=== PATIENT | male | born 1970 | race Caucasian/White ===

== ENCOUNTER → 2023-07-30 09:20 | Outpatient (BNVA) | payer SELFPAY | PROVIDERS: Visit Provider Emergency Medicine | DX: M25.532 Pain in left wrist (principal) | CPT/HCPCS: 73110 ==

== ENCOUNTER 2024-12-08 13:37 | Emergency (ER) | payer SELFPAY ==
[2024-12-08 13:46] VITALS: BP 130/79; PULSE 82; RESP 18; TEMP 37.1; O2SAT 95
--- OUTSIDE RECORDS SUMMARY | 2024-12-08 14:08 | XMS_ITS | Encounter Summary ---
Author Organization [facility] Address [address] [place] [address] Care Team Providers Care Windows 7 Deployment Lead Name Role Phone Unavailable Primary Care Provider Unavailabl e Encounter Details Date Type Department Care Team (Latest Contact Info) Description 05/09/2003 Outpatient Historical [facility] [address] 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
--- OUTSIDE RECORDS SUMMARY | 2024-12-08 14:08 | XMS_ITS | Encounter Summary ---
Author Organization [facility] Address [address] [place] [address] Care Team Providers Care Heavy Repairer Name Role Phone Unavailable Primary Care Provider Unavailabl e Encounter Details Date Type Department Care Team (Latest Contact Info) Description 10/05/2004 Outpatient Historical 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
--- OUTSIDE RECORDS SUMMARY | 2024-12-08 14:08 | XMS_ITS | Clinical Summary ---
Author Organization [facility] Address [address] [place]: Epic Prelude ADT [place] [address] Care Team Providers Care Desizing Machine Offbearer Name Role Phone Unavailable Primary Care Provider Unavailabl e Medications ALPRAZolam (XANAX) 1 mg tablet 1 tab one hour before MRI. May repeat after 30-45 min if still anxious.. 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 Gender Identity Not on file Sexual Orientation Not on file Last Filed Vital Signs Vital Sign Reading Time Taken Comments Blood Pressure 118/92 01/07/2018 3:17 PM CDT Pulse 90 01/07/2018 3:17 PM CDT Temperature 36.8 C (98.3 F) 01/07/2018 3:17 PM CDT Respiratory Rate 18 01/07/2018 3:17 PM CDT Oxygen Saturation - - Inhaled Oxygen Concentration - - Weight 131.1 kg (289 lb) 01/07/2018 3:17 PM CDT Height 180.3 cm (5' 11 ) 01/07/2018 3:17 PM CDT Body Mass Index 40.31 01/07/2018 3:17 PM CDT Plan of Treatment Health Maintenance Due Date Last Done Comments DTAP/TDAP/TD VACCINES (1 - Tdap) 1987 HEPATITIS B VACCINES (1 of 3 - 19+ 3-dose series) 11/1987 COLORECTAL SCREENING 2013 Colorectal Cancer Screening 2013 FIT-DNA Q 3 years 2013 FIT/FOBT Q 1 year 2013 Flex Sig/CT Colonography Q 5 years 2013 ZOSTER VACCINE (1 of 2) 2018 INFLUENZA VACCINE (#1) 2024
--- OUTSIDE RECORDS SUMMARY | 2024-12-08 14:09 | XMS_ITS | Encounter Summary ---
Author Organization [facility] Address [address] [place] [address] Care Team Providers Care Extract Puller Name Role Phone Unavailable Primary Care Provider Unavailabl e Encounter Details Date Type Department Care Team (Late st Contact Info) Description 02/11/2007 Outpatient Historical [facility] [address] 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
--- OUTSIDE RECORDS SUMMARY | 2024-12-08 14:09 | XMS_ITS | Clinical Summary ---
Author Organization [facility] Address [address] [address] Care Team Providers Care Ground Intelligence Officer Name Role Phone Unavailable Primary Care Provider Unavailabl e Medications ALPRAZolam (XANAX) 1 mg tablet 1 tab one hour before MRI. May repeat after 30-45 min if still anxious.. 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
--- NOTE | 2024-12-08 15:05 | USR_ITS ---
PROCEDURE INFORMATION: Exam: US Scrotum Exam date and time: 12/08/2024 3:30 PM Age: 54 years old Clinical indication: Other: knot on testicle; Additional info: knot on testicle . Patient describes the lesion doubling in size in 1 day. TECHNIQUE: Imaging protocol: Real-time ultrasound of the scrotum and contents with color Doppler and image documentation. COMPARISON: No relevant prior studies available. FINDINGS: Right testicle: Normal. No mass. Normal color Doppler and arterial waveforms. No torsion. Left testicle: Normal. No mass. Normal color Doppler and arterial waveforms. No torsion. Epididymides: Normal. Scrotum/soft tissues: There is a hyperechoic mass along the right lateral scrotal wall measuring 4 x 2 cm. It has some internal vascularity on color Doppler. Small bilateral hydroceles. US/US scrotum [id number] IMPRESSION: 1. Soft tissue mass with internal vascularity involving the right scrotal wall laterally. Recommend follow-up ultrasound in 6-8 weeks. 2. Unremarkable testes and epididymi.
--- NOTE | 2024-12-08 16:31 | W.ED.MALEGU ---
HPI - Male Genitourinary General: Chief complaint: Skin/Abscess/Foreign Body Stated complaint: knot on R testicle, pain Time Seen by Provider: 12/08/24 16:17 Source: patient Mode of arrival: ambulatory Limitations: no limitations History of Present Illness: Patient 54-year-old male presents to ED today for evaluation of a painless mass to his right scrotal region that he noticed about a week ago. Patient states he has not noticed any redness or warmth to the area. No drainage. He is not having any urinary symptoms. No family history of testicular cancer. MD Complaint: other (scrotal mass) Onset (ago): day(s) Duration: constant Location: right testicle Radiation: right testicle Relieving factors: none Exacerbating factors: none Associated symptoms: Reports no associated symptoms; Deny dysuria, hematuria, nausea or vomiting Related Data Previous Rx's ?Medication ?Instructions ?Recorded methylprednisolone 4 mg tablets in See Rx Instructions PO PER PKG DIR 07/30/23 a dose pack (Medrol (Janusz)) #21 ea cephalexin 500 mg capsule 500 mg PO TID #21 caps 08/03/23 naproxen 500 mg tablet 500 mg PO BID #30 tabs 08/03/23 Allergies Allergy/AdvReac Type Severity Reaction Status Date / Time No Known Allergies Allergy Verified 08/03/23 10:04 Review of Systems Const: Denies: fever(s), chills, body aches, fatigue or malaise Card: Denies: chest pain Resp: Denies: dyspnea GI: Denies: abdominal pain, nausea, vomiting or change in bowel habits : Reports: scrotal swelling; Denies: flank pain, difficulty urinating, dysuria, urinary frequency, urinary urgency, urinary hesitancy, hematuria, genital pain, penile discharge, testicular pain, testicular mass or hematospermia Musc: Denies: back pain Skin/Breast: Denies: rash or erythema Neuro: Denies: headache(s), numbness in extremities, weakness in extremities or sensory changes Physical Exam Const: COMMON NORMALS: no acute distress, no limitations, alert and well nourished GENERAL APPEARANCE: cooperative NUTRITIONAL APPEARANCE: overweight GI: COMMON NORMALS: Normal to inspection, nondistended, normoactive bowel sounds present, Soft to palpation, non-tender, No hepatosplenomegaly present and no masses PALPATION: Yes Soft to palpation and Yes No hepatosplenomegaly present : COMMON NORMALS: Yes no CVA tenderness BLADDER/KIDNEY EXAM: Yes no CVA tenderness PENIS: normal penis MEATUS: meatus normal SCROTUM: Yes testes descended bilaterally and Yes scrotal mass (no erythema/warmth; no fluctuance) Scrotal mass laterality: right Back/Pelvis: COMMON NORMALS: no CVA tenderness Neuro: SENSORIUM/ORIENTATION: Yes alert Course Vital Signs: Vital signs: Vital Signs Temperature 98.8 F 12/08/24 13:46 Pulse Rate 82 12/08/24 13:46 Respiratory Rate 18 12/08/24 13:46 Blood Pressure 130/79 12/08/24 13:46 Pulse Oximetry 95 12/08/24 13:46 Oxygen Delivery Me thod Room Air 12/08/24 13:46 MDM - Male Medical Decision Making Patient has a 4 x 2 cm painless right scrotal mass. This does not appear fluid-filled on the ultrasound or clinically. Patient will require follow-up with urology for potential biopsy. Case management referral has been placed for this. Return to ED precautions discussed. Medical Records I reviewed the patient's medical records. Lab Data Radiology Impressions Scrotum Ultrasound 12/08/24 15:05 IMPRESSION: 1. Soft tissue mass with internal vascularity involving the right scrotal wall laterally. Recommend follow-up ultrasound in 6-8 weeks. 2. Unremarkable testes and epididymi. All radiology interpretation(s) finalized by discharge Discharge Plan Discharge Patient Disposition: Home Clinical Impression: Mass, scrotum Condition: Stable Prescriptions: No Action methylprednisolone [Medrol (Janusz)] 4 mg tablets,dose pack See Rx Instructions PO PER PKG DIR Qty: 21 0RF Rx Instructions: PO PER PKG DIR naproxen 500 mg tablet 500 mg PO BID Qty: 30 0RF cephalexin 500 mg capsule 500 mg PO TID Qty: 21 0RF Discharge Orders: Discharge ED (Routine); Ordered 12/08/24 Ordered By: Azul Sanchez Patient Instructions: Patient Portal & Suzy Instructions Activity Restrictions/Additional Instructions: As we discussed, your ultrasound today showed a scrotal mass. At this point we will have you follow-up with urology in [place] for further evaluation. Case management should reach out to you this week on the phone number provided. You need to seek medical re-evaluation if the mass continues to enlarge, becomes more painful, becomes red or hot, you start running fevers, or any other concerns you may have. Stand Alone Forms: Work/School Release Print Language: Mosotho Coding Level of Care Code ED Corrugator Machine Operator for Michael Hannah
--- NOTE | 2024-12-12 05:15 | DCPLANNER ---
Referral sent [facility]
== END 2024-12-08 16:57 | disposition home or self-care (01) ==
PROVIDERS: Emergency Provider Physician Assistant
DX: N50.9 Disorder of male genital organs, unspecified (principal)
CPT/HCPCS: 76870; 99284

== ENCOUNTER → 2024-12-23 09:29 | Outpatient (BNVA) | payer BC, MEDICAID, SELFPAY | PROVIDERS: Visit Provider Nurse Practitioner | DX: Z12.5 Encounter for screening for malignant neoplasm of prostate (principal); E11.9 Type 2 diabetes mellitus without complications; M17.12 Unilateral primary osteoarthritis, left knee | CPT/HCPCS: 73562; 80053; 80061; 83036; 85025; G0103 ==

== ENCOUNTER 2025-03-02 12:20 | Outpatient (CLI) | payer BC, MEDICAID, SELFPAY ==
--- NOTE | 2025-03-02 13:00 | MR_ITS ---
WS: [id number] MRI LEFT KNEE NONCONTRAST TECHNIQUE: Axial PD, coronal PD fat sat, coronal PD, sagittal PD, and sagittal PD fat-sat images obtained. CLINICAL INFORMATION: Left knee pain COMPARISON: None. FINDINGS: Moderate to advanced tricompartmental arthritis. Distal quadriceps and patella tendons are intact. Hypertrophic patella. ACL is not visualized. Presumed complete chronic tear of the ACL. PCL appears intact with small intrasubstance fissure compatible with tiny partial tear. Grade IV chondromalacia patella. This is worst in the lateral patellar facet. Small suprapatellar effusion. Medial and lateral patellar retinaculum appear intact. Chronic dessication of the medial and lateral meniscus with chronic appearing tears and blunting. Near complete loss of the medial joint compartment with subchondral edema and grade IV chondromalacia. Medial and lateral collateral ligaments appear grossly intact. Hypertrophic changes along the joint line. MR/MR knee LT wo con* [id number] IMPRESSION: 1. 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 2. Grade IV chondromalacia patella worse involving the lateral patellar facet. 3. Subchondral edema involving the medial and lateral femoral condyles. Comple te loss of the medial joint space. 4. Chronic appearing tears and desiccation of the medial and lateral meniscus worse involving the medial meniscus. 5. ACL is not visualized presumably chronically torn. 6. Small suprapatellar effusion. 7. Small fluid-filled fissure in the PCL compatible with partial intrasubstanc e tear Outbridge grading: grade IV: full-thickness cartilage loss with underlying bone reactive changes
== END 2025-03-02 12:21 | disposition home or self-care (01) ==
LOC: RAD 12:22
PROVIDERS: PCP Nurse Practitioner; Visit Provider Orthopaedic Surgery
DX: M17.12 Unilateral primary osteoarthritis, left knee (principal); M22.8X2 Other disorders of patella, left knee; R93.89 Abnormal findings on diagnostic imaging of other specified body structures; M22.42 Chondromalacia patellae, left knee; M25.462 Effusion, left knee
CPT/HCPCS: 73721